=== PATIENT | female | born 1995 | race Two or more races ===

== ENCOUNTER 2025-01-19 10:42 | Emergency (ER) | payer MEDICAID, SELFPAY ==
[2025-01-19 10:43] VITALS: BMI 30.7
[2025-01-19 11:29] VITALS: BP 132/77; PULSE 88; RESP 18; TEMP 36.6; O2SAT 100
--- NOTE | 2025-01-19 11:31 | EDNOTE_ITS ---
Upper Extremity Injury RME/HPI General Chief Complaint: Hand/Wrist Problems Stated Complaint: BUMPS TO HAND X3 DAYS Time Seen by Provider: 01/19/25 11:15 Arrival date/time: 01/19/25 10:42 RME / HPI RME / HPI narrative: 29-year-old female patient came in for evaluation regarding multiple vesicles noted on the palm of the hand and side of fingers bilateral, with itchiness, severity mild. Patient denies any similar episode in the past. Patient denies any fever denies any other complaints no other lesion noted in the feet or mouth. No medication was taken prior to ER visit. Related Data Home Medications ?Medication ?Instructions ?Recorded ?Confirmed vit no.95-ferrous 04/14/19 fumarate 28 mg-folic acid 800 mcg tablet () Previous Rx's ?Medication ?Instructions ?Recorded ibuprofen 800 mg tablet 800 mg PO Q6H PRN pain #120 tabs 04/14/19 diclofenac sodium 1 % topical gel 4 g topical QID #100 grams 12/31/23 ibuprofen 800 mg tablet (IBU) 800 mg PO Q8H #20 tabs 0 12/31/23 benzonatate 100 mg capsule 100 mg PO TID #14 caps 07/31 ibuprofen 600 mg tablet 600 mg PO Q6H #30 tabs 01/10 diphenhydramine HCl 25 mg capsule 25 mg PO TID PRN itc kary #30 caps 01/19/25 (Benadryl) hydrocortisone 2.5 % topical cream 1 applic topical BI D 7 days #30 01/19/25 grams Allergies Allergy/AdvReac Type Severity Reaction Status Date / Time No Known Allergies Allergy Verified 01/19/25 10:43 Review of Systems Review of Systems Narrative Review of Systems: Review of system reviewed and within normal limits except mentioned in HPI ED Exam Narrative Physical exam: VITAL SIGNS: Reviewed. GENERAL APPEARANCE: Alert and interactive, follows commands, no acute distress, HEAD AND FACE: Non-traumatic. ENT: PERRL, pink conjunctivitis, eyelid no trauma, Mucous membrane moist. NECK: Supple, nontender, no nuchal rigidity. CHEST: No tenderness, no crepitus, no paradoxical movement, no retractions. LUNGS: Clear, well ventilated, symmetric, no rales, no wheezing, no ronchi, no stridor, good breath sounds bilaterally. HEART: Regular rate, regular rhythm, no murmur, no gallops. RECTAL: Deferred. GENITAL: Deferred. NEUROLOGICAL: Gross motor function intact s MUSCULOSKELETAL: low back nontender, full range of motion. EXTREMITIES: Nontender, full range of motion. SKIN: Color pink, dry, + multiple loose small vesicle noted on the hand palmar aspect and side of the fingers, no lacerations, no abrasions, no contusions. LYMPHATICS: Deferred. Course Quality Measures none Vital Signs Vital signs: Vital Signs Temperature 98 F 01/19/25 11:29 Pulse Rate 88 01/19/25 11:29 Respiratory Rate 18 01/19/25 11:29 Blood Pressure 132/77 H 01/19/25 11:29 Pulse Oximetry (%) 100 01/19/25 11:29 Oxygen Delivery Method Room Air 01/19/25 11:29 Extremity Injury MDM Narrative MDM Narrative:: 29-year-old female patient came in for evaluation regarding multiple vesicles noted on the palm of the hand and side of fingers bilateral, with itchiness, severity mild. Patient denies any similar episode in the past. Patient denies any fever denies any other complaints no other lesion noted in the feet or mouth. No medication was taken prior to ER visit. Patient was advised to take hydrocortisone cream or take Benadryl as needed Stable for charge home. Patient data External records reviewed:: None Clinical information provided by:: patient Social determinants that could affect healthcare access:: none Patient has the following chronic illnesses:: None How is presenting disease/condition affected by chronic disease/condition?: no chronic disease Evaluation data The following diagnostics were reviewed and interpreted by me:: other (specify) (None) Lab and/or radiology exams considered but not ordered:: None Interpretation Summary: None Medications / Prescriptions Medications or Prescriptions considered but not ordered:: None Medication administrations:: None Consultations Consultation(s) initiated? (list below): No Diagnosis Upper Extremity Injury Differential Diagnosis: other ( hand eczema, herpetic amos, xdcm-ubul-pij-mouth disease, viral infection) Most likely diagnosis given after review of the tests above:: Vesicular hand eczema Admission Indicated Admission indicated?: not indicated Admission Request Was there a request for admission?: No Disposition Plan Disposition Plan: Discharge Discharge Attestation Discharge Attestation: The pateint was given an opportunity to ask questions and understood the discharge instructions. Discharge instructions specifically effects, indications for sooner follow up or return to the emergency department, and the expected course of current diagnosis. Patient condition: Stable Discharge Plan Plan Patient Disposition: HOME (Self Care) Discharge Disposition comment: stable Prescriptions/Referrals Prescriptions/Med Rec: New diphenhydramine HCl [Benadryl] 25 mg capsule 25 mg PO TID PRN (Reason: itching) Qty: 30 0RF hydrocortisone 2.5 % cream 1 applic topical BID 7 Days Qty: 30 0RF No Action PNV no.95-ferrous fumarate-FA [] 28 mg iron- 800 mcg Tablet ibuprofen 800 mg tablet 800 mg PO Q6H PRN (Reason: pain) Qty: 120 0RF benzonatate 100 mg capsule 100 mg PO TID Qty: 14 0RF ibuprofen 600 mg tablet 600 mg PO Q6H Qty: 30 0RF ibuprofen [IBU] 800 mg tablet 800 mg PO Q8H Qty: 20 0RF diclofenac sodium 1 % gel 4 g topical QID Qty: 100 0RF Rx Instructions: apply to single knee, ankle, foot; for foot includes sole/toes/top of foot Referrals: No Primary/Family,Physician [Primary Care Provider] - In 1 week Problem List Clinical Impression: Vesicular hand eczema Patient/Caregiver Discharge Instructions Discharge Activity: activity as tolerated Education Materials: ED Dermatitis Nonspecific Ch Additional Instructions: Thank you for the opportunity for serving you today. You are stable for discharged . You are advised to: Follow-up with your PCP in 1 to 2 days Return to ED for worsening of symptoms Increase oral fluids You can take Benadryl as needed for itchiness. You can apply hydrocortisone BID for 7 days If your symptoms persist for more than a week ask your PCP to refer you to engineering mathematician. Print Language: Haitian Stand Alone Forms: [employer] Award Info., Patient Portal Info Letter PA/TMD TEACHER Supervising Physician MIRIAM/JOSELUIS Supervising Physician: Md Justin
== END 2025-01-19 11:46 | disposition home or self-care (01) ==
PROVIDERS: Emergency Provider Family Medicine
DX: L30.9 Dermatitis, unspecified (principal)
CPT/HCPCS: 99281

== ENCOUNTER 2025-04-01 14:33 | Emergency (ER) | payer MEDICAID, SELFPAY ==
[2025-04-01 15:19] VITALS: BP 134/88; PULSE 79; RESP 16; TEMP 36.6; O2SAT 97; BMI 29.8
--- NOTE | 2025-04-01 15:23 | PD.EDADULT ---
ED General RME/HPI General Chief complaint: Dental/Oral/Throat Stated complaint: R) JAW TOOTHACHE 01/17 Time Seen by Provider: 04/01/25 15:22 Arrival date/time: 04/01/25 14:33 CC: Dental pain HPI onset last night, the patient has a right lower molar that she has been meaning to have fixed , by seeing the dentist however this is not the first episode of pain in the same site. Patient denies swelling in the mouth fever chills nausea vomiting. Pain not relieved with naproxen. Related Data Home Medications ?Medication ?Instructions ?Recorded ?Confirmed vit no.95-ferrous 04/14/19 fumarate 28 mg-folic acid 800 mcg tablet () Previous Rx's ?Medication ?Instructions ?Recorded ibuprofen 800 mg tablet 800 mg PO Q6H PRN pain #120 tabs 04/14/19 diclofenac sodium 1 % topical gel 4 g topical QID #100 grams 12/31/23 ibuprofen 800 mg tablet (IBU) 800 mg PO Q8H #20 tabs 12/31/23 benzonatate 100 mg capsule 100 mg PO TID #14 caps 01/11/24 ibuprofen 600 mg tablet 600 mg PO Q6H #30 tabs 01/11/24 diphenhydramine HCl 25 mg capsule 25 mg PO TID PRN itching #30 caps 01/19/25 (Benadryl) amoxicillin 500 mg tablet 500 mg PO BID #14 tabs 04/01/25 ketorolac 10 mg tablet 10 mg PO Q8H #10 tabs 04/01/25 Allergies Allergy/AdvReac Type Severity Reaction Status Date / Time No Known Allergies Allergy Verified 04/01/25 14:35 Review of Systems Review of Systems Narrative Review of Systems: GEN: No fever, no chills, no weight loss EYES: No discharge, no visual changes, no pain HEENT: No ear pain, no congestion, no sore throat PULM: No shortness of breath, no cough, no congestion CV: No chest pain, no dyspnea on exertion, no palpitations GI: No nausea, no vomiting, no diarrhea, no pain, no constipation : No frequency, no urgency, no dysuria MUSC/SKEL: No joint pain, no back pain SKIN: No rash PSYCH: No hallucinations, no depression HEME/LYMPH: No easy bleeding or bruising tendencies NEURO: No weakness, no headache Past Medical History Past Medical History NEUROLOGIC: Negative Neurological Disorders CARDIAC: Negative Cardiac Disorders or Congestive Heart Failure RESPIRATORY: Negative Chronic Obstructive Pulmonary Disease (COPD) GASTROINTESTINAL: Negative Gastrointestinal Disorders, Hepatitis or Colorectal Cancer GENITOURINARY: Negative Genitourinary Disorders, Renal Disease or Prostate Cancer REPRODUCTIVE: Negative Breast Cancer or Testicular Cancer MUSCULOSKELETAL: Negative Musculoskeletal Disorders or Bone Cancer ENDOCRINE: Negative Endocrine Disorders, Diabetes Mellitus Type 1 or Diabetes Mellitus Type 2 HEMATOLOGIC: Negative Blood Disorders OTHER HISTORY: Negative Hospitalization, Autoimmune Disease, Down Syndrome, Developmental Delay, Shingles, Falls, Blood Transfusions, Blood Transfusion Reaction, Anesthesia Reactions, Organ Transplant, Chemotherapy, Radiation Therapy, Hyperbaric Therapy, MRSA, Vancomycin-Resistant Enterococci, Human Immunodeficiency Virus (HIV), Chicken Pox, Measles, Mumps, Rubella ([place] Measles), Pertussis, Clostridium Difficile, Cancer, Breast Cancer, Cervical Cancer, Colorectal Cancer, Lung Cancer, Ovarian Cancer, Prostate Cancer or Testicular Cancer Family History FAMILY HISTORY: Negative Family Psychiatric Problems, Family Respiratory Disorders, Family Cardiac Disorders, Family Gastrointestinal Problems, Family Cancer, Family Surgery or Family Anesthesia Reaction Surgical History SURGICAL: Negative Section or Organ Transplant Social History SMOKING STATUS: Never smoker ED Exam Narrative Physical exam: [General: In mild discomfort but not in any acute distress Head normocephalic HEENT: Mouth: [place] moist membranes uvula is midline swallow symmetrical phonation is normal. Right lower mandible has multiple molars with dental caries, no surrounding erythema or edema. All of the subsystems of HEENT are within acceptable limits Neck is supple nontender, no LAD no JVD no stridor Chest equal chest rise nontender to palpation Respiratory: Clear to auscultation no wheezes crackles or rubs CV: Rate rhythm is regular no murmurs rubs or clicks Abdomen is distended secondary to body habitus soft nontender no masses positive bowel sounds all 4 quadrants Back: No CVA tenderness no spinous process tenderness from cervical spine thoracic and lumbar spine Skin: Intact no petechiae rash induration ulceration or crepitus Extremities: Moving all extremity against resistance cap refill less than 2 seconds neurosensory intact Neuro: Awake alert oriented x3 Glascow coma 15 no focal deficits] Course Quality Measures none Orders Category Date Time Status Ketorolac Inj [Toradol Inj] Med 04/01/25 15:23 Once 30 mg IM X1 ONE Vital Signs Vital signs: Vital Signs Temperature 97.9 F 04/01/25 15:19 Pulse Rate 79 04/01/25 15:19 Respiratory Rate 16 04/01/25 15:19 Blood Pressure 134/88 H 04/01/25 15:19 Pulse Oximetry (%) 97 04/01/25 15:19 Oxygen Delivery Method Room Air 04/01/25 15:19 Discharge Plan Plan Patient Disposition: HOME (Self Care) Patient condition on transfer: Stable Prescriptions/Referrals Prescriptions/Med Rec: New amoxicillin 500 mg tablet 500 mg PO BID Qty: 14 0RF ketorolac 10 mg tablet 10 mg PO Q8H Qty: 10 0RF Rx Instructions: maximum total duration of 5 days from all oral, intranasal, or parenteral formulations No Action PNV no.95-ferrous fumarate-FA [] 28 mg iron- 800 mcg Tablet ibuprofen 800 mg tablet 800 mg PO Q6H PRN (Reason: pain) Qty: 120 0RF benzonatate 100 mg capsule 100 mg PO TID Qty: 14 0RF ibuprofen 600 mg tablet 600 mg PO Q6H Qty: 30 0RF diphenhydramine HCl [Benadryl] 25 mg capsule 25 mg PO TID PRN (Reason: itching) Qty: 30 0RF ibuprofen [IBU] 800 mg tablet 800 mg PO Q8H Qty: 20 0RF diclofenac sodium 1 % gel 4 g topical QID Qty: 100 0RF Rx Instructions: apply to single knee, ankle, foot; for foot includes sole/toes/top of foot Referrals: Mat Pedroza MD [Physician, Family Practice] - In 1 week Problem List Clinical Impression: Pain, dental, Dental caries Patient/Caregiver Discharge Instructions Other Activity Instructions:: Follow-up as stated with your dentist tomorrow. Take the medication as prescribed Education Materials: ED Dental Pain, ED Dental Cavity Print Language: Ukrainian Stand Alone Forms: Paz Award Info., Patient Portal Info Letter, Work/School Release PA/GUYLINE OPERATOR Supervising Physician MIRIAM/GUYLINE OPERATOR Supervising Physician: Az Mathew ENP [facility] Clinical Information Provided by: patient Medical Records reviewed [facility] Meds/Rx considered, not ordered None Labs/Rad/Tests considered, not ordered None Chronic Illness/Social Conditions which may negatively complicate care or outcome(s)-explain: None or not applicable EKG EKG not done Labs Labs: none Imaging Imaging interpretation: none Medication Administration(s) Medication Administration History Ketorolac Tromethamine (Ketorolac Inj 30 Mg/Ml Vial) 30 mg IM X1 ONE Stop: 04/01/25 15:24 Diagnosis Differential Diagnosis ED Complaint MDM: Dental caries dental abscess dental pain
[2025-04-01] MEDS: KETOROLAC INJ 30 MG/ML VIAL IM (16:31)
== END 2025-04-01 16:37 | disposition home or self-care (01) ==
LOC: SERX 15:42
PROVIDERS: Emergency Provider Emergency Medicine; PCP Family Medicine
DX: K02.9 Dental caries, unspecified (principal)
CPT/HCPCS: 96372; 99282; J1885